=== PATIENT | female | born 1985 | race African-American/Black ===

== ENCOUNTER 2025-09-08 19:48 | Inpatient (IN) | payer OTHER ==
[2025-09-08 18:54] VITALS: BMI 18.8
[~2025-09-08 19:48] MED LIST: BENZONATATE 200 MG CAPSULE PO PRN; BISMUTH SUBSALICYLATE 524 MG/30 ML PO PRN; DICYCLOMINE HCL 10 MG CAPSULE PO PRN; IBUPROFEN 400 MG TABLET (FP) PO PRN; IBUPROFEN 600 MG TABLET (FP) PO PRN; LOPERAMIDE HCL 2 MG CAPSULE PO PRN; MAG HYDROX/AL HYDROX/SIMETH 30 ML UNIT-DOSE CUP PO PRN; MAGNESIUM HYDROX 2400MG/30ML ORAL SUSPENSION 30 ML CUP PO PRN; NALOXONE (NARCAN) HCL 4 MG/0.1 ML SPRAY NS PRN; NICOTINE POLACRILEX 2 MG LOZENGE BC PRN; ONDANSETRON *ODT* 4 MG TABLET SL PRN; POLYETHYLENE GLYCOL (HEALTHYLAX) 3350 17 GM PACKET PO PRN; guaiFENesin 600 MG TABLET.ER (FP) PO PRN
[2025-09-08] MEDS: THIAMINE 100 MG TABLET PO SCH (22:36)
[2025-09-08] MEDS: MELATONIN 5 MG TABLETS PO SCH (22:36)
[2025-09-09] MEDS: METHOCARBAMOL 500 MG TABLET PO PRN (03:22)
[2025-09-09] MEDS: ACETAMINOPHEN 325 MG TABLET (FP) PO PRN (03:22)
[2025-09-09 10:14] LABS: MCHC 32.5 g/dl (32.2-35.5); MEAN CELL VOLUME 88.5 fl (79.4-94.8); MEAN PLT VOLUME 9.7 fl (9.4-12.3); RDW 14.6 % (12.1-16.8)
[2025-09-09] MEDS: PRENATAL VITAMINS W/ FOLIC ACID TABLET (FP) PO SCH (10:21)
[2025-09-09] MEDS: FAMOTIDINE 20 MG TABLET PO SCH (10:21)
[2025-09-09 10:56] LABS: GLUCOSE,RANDOM 127 mg/dL (74-106); TOT PROT 6.9 g/dl (6.4-8.2)
[2025-09-09 10:58] LABS: CO2 22 mmol/L (21-32)
[2025-09-09 10:59] LABS: ALK PHOS 47 U/L (40-150)
[2025-09-09 11:02] LABS: CREATININE 0.71 mg/dL (0.55-1.3); SGOT/AST 35 U/L (5-34); SGPT/ALT 28 U/L (0-55)
[2025-09-09] MEDS: PANTOPRAZOLE 40 MG TABLET PO SCH (12:54)
[2025-09-09] MEDS: MIRTAZAPINE 15 MG TABLET (FP) PO SCH (22:26)
[2025-09-09] MEDS: BENZOCAINE/MENTHOL (CHLORASEPTIC ) LOZENGE MM PRN (22:27)
[2025-09-11] MEDS: NALTREXONE HCL 50 MG TABLET PO SCH (10:14)
[2025-09-11 10:38] LABS: GLUCOSE,RANDOM 92.0 mg/dL (74-106)
[2025-09-11 10:39] LABS: CO2 25.0 mmol/L (21-32); TOT PROT 7.4 g/dl (6.4-8.2)
[2025-09-11 10:41] LABS: ALK PHOS 48.0 U/L (40-150)
[2025-09-11 10:44] LABS: CREATININE 0.67 mg/dL (0.55-1.3); SGOT/AST 28.0 U/L (5-34); SGPT/ALT 17.0 U/L (0-55)
[2025-09-11] MEDS: NICOTINE POLACRILEX 2 MG GUM BUC PRN (20:14)
[2025-09-12] MEDS: hydrOXYzine PAMOATE 25 MG CAPSULE (FP) PO PRN (16:02)
[2025-09-13 09:55] VITALS: BP 101/74; PULSE 90; RESP 18; TEMP 97.6
== END 2025-09-13 12:37 | disposition home or self-care (01) | DRG 774 ==
LOC: YASAS 19:48 → Y6N 19:56
PROVIDERS: ADMIT Neuromusculoskeletal Medicine & OMM; ATTEND Student in an Organized Health Care Education/Training Program
PROC: HZ2ZZZZ Detoxification Services for Substance Abuse Treatment (ICD-10-PCS; principal; 2025-09-08)
DX: F10.230 Alcohol dependence with withdrawal, uncomplicated (principal); F14.20 Cocaine dependence, uncomplicated; F10.220 Alcohol dependence with intoxication, uncomplicated; F17.290 Nicotine dependence, other tobacco product, uncomplicated; F43.10 Post-traumatic stress disorder, unspecified; F41.1 Generalized anxiety disorder; F32.A Depression, unspecified; G47.00 Insomnia, unspecified
CPT/HCPCS: 36415; 80053; 80305; 80307; 81025; 85027; 86780; 87637-QW; 93005; 93010